=== PATIENT | male | born 1965 | race Caucasian/White ===

== ENCOUNTER 2017-08-11 21:45 | Emergency (ER) | payer SELFPAY ==
[2017-08-11 22:37] LABS: Urine Bacteria Absent (Absent); Urine Bilirubin Negative (Negative); Urine Glucose Negative (Negative); Urine Nitrite Positive (Negative)
[2017-08-11] MEDS ORDERED: NS 0.9% 1000 ML* 1,000 ML IV ONE (23:00)
[2017-08-11] MEDS ORDERED: Ketorolac INJ* 30 MG/ML 1 ML VIAL IV ONE (23:00)
[2017-08-11] MEDS ORDERED: Metoclopramide IV* 5 MG/ML 2 ML VIAL IV ONE (23:00)
[2017-08-11] MEDS ORDERED: Morphine INJ* 4 MG/ML 1 ML CARPUJECT IV PRN (23:00)
[2017-08-12] MEDS ORDERED: Tamsulosin CAP* 0.4 MG PO ONE (00:51)
[2017-08-12] MEDS ORDERED: oxyCODONE/Acetamin 5/325 MG* TAB PO ONE (00:52)
[2017-08-12 01:04] VITALS: BP 117/68
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
--- NOTE | 2017-08-12 07:34 | RAD ---
INDICATION: Right flank abdominal pain. COMPARISON: Comparison is made with prior CT of the abdomen and pelvis from June 14, 2007. TECHNIQUE: A CT scan of the abdomen and pelvis was performed without intravenous or oral contrast. Contiguous axial sections were obtained from the lung bases through the symphysis pubis. Images were reconstructed in the coronal and sagittal planes. FINDINGS: The lung bases are clear. No pleural effusion is present. The liver is normal in size and decreased in attenuation consistent with fatty liver. No significant focal hepatic abnormality is seen. There is an absent spleen. No calcific gallstones are noted. The pancreas appears to be within normal limits. The adrenal glands appear within normal limits. There are multiple bilateral renal calculi. These measure up to 0.9 cm in size. In addition there is a large calculus at the right ureteropelvic junction measuring 1.6 x 0.9 cm in size which is causing severe hydronephrosis. There was a similar calculus in the renal pelvis on the prior study. No bladder calculi are seen. The aorta is normal in caliber without significant calcific plaque. No significant enlarged retroperitoneal lymph nodes are seen. The stomach is moderately distended with food debris. The small bowel and colon appear nondistended. The appendix is within normal limits. There is moderate sigmoid diverticulosis. There is no evidence for diverticulitis or colitis. There is a small anterior abdominal wall hernia present in the upper abdomen centered just to the right of the midline containing a knuckle of small bowel which is nondistended. There are also bilateral inguinal hernias containing fat. No free intraperitoneal air or fluid is seen. No significant focal osseous abnormality is seen. IMPRESSION: 1. MULTIPLE BILATERAL RENAL CALCULI. IN ADDITION THERE IS A LARGE CALCULUS AT THE RIGHT URETEROPELVIC JUNCTION CAUSING SEVERE HYDRONEPHROSIS. 2. HEPATIC STEATOSIS. 3. STATUS POST SPLENECTOMY. 4. ANTERIOR ABDOMINAL WALL HERNIA CONTAINING A KNUCKLE OF NONDISTENDED SMALL BOWEL.
== END 2017-08-12 01:24 | disposition home or self-care (01) ==
LOC: ED 21:45
DX: N20.1 Calculus of ureter (principal); R10.84 Generalized abdominal pain
CPT/HCPCS: 74176; 81003; 81015; 87077; 87086; 87186; 96374; 96375; 99283; A9270-GY

== ENCOUNTER 2018-12-04 00:37 | Emergency (ER) | payer OTHER ==
--- NOTE | 2018-12-04 01:04 | ED ---
Upper Extremity Pain - HPI Summary HPI Summary: A 53 y/o male presents to [facility] with a chief complaint of right shoulder pain since last night. The patient reports that he had this pain after bowling. He bowls right handed and claims that he bowls often. The patient rates his pain as an 8/10 in severity. He also reports some pain in his neck and claims that his right arm is going numb. He took ibuprofen [employer] but it did not alleviate his symptoms. He claims that he had similar symptoms before and was told that it was due to arthritis. - History of Current Complaint Chief Complaint: EDExtremityUpper Stated Complaint: RT SHOULDER PAIN, ARM NUMBNESS PER PT Time Seen by Provider: 12/04/18 00:56 Hx Obtained From: Patient Mechanism Of Injury: Other - after bowling Onset/Duration: Started Hours Ago, Still Present Timing: Constant, Lasting Hours Severity Initially: Severe Severity Currently: Severe Pain Location: Shoulder Character: Unable to Describe Aggravating Factor(s): Nothing Alleviating Factor(s): Nothing Associated Signs & Symptoms: Positive: Numbness/Tingling, Neck Pain. 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, s/p 4 gastelum accident Infectious Disease History: No Infectious Disease History: Denies: Hx Hepatitis, Hx Human Immunodeficiency Virus (HIV), Traveled Outside the [place] in Last 30 Days - Family History Known Family History: Negative: Cardiac Disease - Social History Alcohol Use: None Alcohol Amount: no etoh for past year and a half Substance Use Type: Reports: None Smoking Status (MU): Never Smoked Tobacco Review of Systems Negative: Fever Positive: Arthralgia - right shoulder pain, Other - positive: neck pain Positive: Numbness - right arm All Other Systems Reviewed And Are Negative: Yes Physical Exam - Summary Physical Exam Summary: Appearance: Well-appearing, Well-nourished, lying in bed comfortable Skin: Warm, dry, no obvious rash Eyes: sclera anicteric, no conjunctival pallor ENT: mucous membranes moist Neck: deferred Respiratory: No signs of respiratory distress Cardiovascular: Appears well perfused, pulses are nml Abdomen: deferred Musculoskeletal: Pain with ROM of right shoulder which limits his mobility, tenderness over anterior shoulder and bicep tendon. Neurological: Awake and alert, mentation is normal, speech is fluent and appropriate Psychiatric: affect is normal, does not appear anxious or depressed Triage Information Reviewed: Yes Vital Signs On Initial Exam: Initial Vitals Temp Pulse Resp BP Pulse Ox 97.7 F 69 18 126/90 96 12/04/18 00:39 12/04/18 00:39 12/04/18 00:39 12/04/18 00:39 12/04/18 00:39 Vital Signs Reviewed: Yes Diagnostics - Vital Signs Vital Signs Temp Pulse Resp BP Pulse Ox 12/04/18 00:39 97.7 F 69 18 126/90 96 - Laboratory Lab Statement: Any lab studies that have been ordered have been reviewed, and results considered in the medical decision making process. - Radiology shoulder x-ray Radiology Interpretation Completed By: ED Physician Summary of Radiographic Findings: no fracture. pending official imaging report. Course/Dx - Course Course Of Treatment: A 53 y/o male presents to [facility] with a chief complaint of right shoulder pain since last night. The patient reports that he had this pain after bowling. The physical exam revealed pain with ROM of right shoulder which limits his mobility, tenderness over anterior shoulder and bicep tendon. The shoulder x-ray was negative for fracture. The patient will be discharged with a prescription for Lodine. The patient is agreeable with this plan. - Diagnoses Provider Diagnoses: Right shoulder strain Discharge - Sign-Out/Discharge Documenting (check all that apply): Patient Departure - DC Patient Received Moderate/Deep Sedation with Procedure: No - Discharge Plan Condition: Good Disposition: HOME Prescriptions: Etodolac [Lodine] 400 mg PO TID PRN #20 tablet PRN Reason: Pain Patient Education Materials: Rotator Cuff Injury (ED) Referrals: Adalberto Pearson MD [Medical Doctor] - Additional Instructions: Use the lodine instead of motrin or naproxen (don't take them together). Ice can also be helpful for pain, as can over the counter lidocaine patches or cream. If it doesn't improve over the next week or so with the above and some rest (no bowling), make an appt with the orthopedic surgeon. - Billing Disposition and Condition Condition: GOOD Disposition: Home - Attestation Statements Document Initiated by Gill: Yes Documenting Scribe: Oswaldo Lizarraga Provider For Whom Gill is Documenting (Include Credential): Jules Jorgensen MD Scribe Attestation: I, Oswaldo Lizarraga, scribed for Jules Jorgensen MD on 12/06/18 at 1252. Scribe Documentation Reviewed: Yes Provider Attestation: The documentation as recorded by the Oswaldo marroquin accurately reflects the service I personally performed and the decisions made by me, Jules Jorgensen MD Status of Scribe Document: Viewed
[2018-12-04 03:01] VITALS: BP 142/59
== END 2018-12-04 02:00 | disposition home or self-care (01) ==
LOC: ED 00:37
DX: S43.401A Unspecified sprain of right shoulder joint, initial encounter (principal); X58.XXXA Exposure to other specified factors, initial encounter; Y93.54 Activity, bowling; Y92.9 Unspecified place or not applicable
CPT/HCPCS: 99282

== ENCOUNTER 2019-06-02 17:04 | Emergency (ER) | payer OTHER ==
--- OUTSIDE RECORDS SUMMARY | 2019-06-02 17:10 | XMS REPORT | Continuity of Care Document ---
:1965 External Reference #:[id number] Author Name Adalberto Pearson MD (transmitted by agent of provider Latia Boyce) Address [address] [place] [id number] Care Team Providers Name Role Phone Patient's Choice Care Team Information Rehanger Unavailable Problems Description No Information Available Social History Type Date Description Comments Sex Unknown ETOH Use Rarely consumes alcohol Tobacco Use Start: Unknown Patient has never smoked Smoking Status Reviewed: 05/11/19 Patient has never smoked Exercise Type/Frequency Exercises regularly Allergies, Adverse Reactions, Alerts Description No Known Drug Allergies Medications Active Medications SIG Qnty Indications Ordering Provider Date Ibuprofen one tablet by Unknown 600mg Tablets mouth q6 as needed pain Immunizations Description No Information Available Vital Signs Date Vital Result Comment 05/11/2019 2:39pm Height 66 inches 5'6" Weight 215.00 lb Heart Rate 88 /min BP Systolic 110 mmHg BP Diastolic 78 mmHg Respiratory Rate 18 /min Body Temperature 98.0 F Pain Level 8 BMI (Body Mass Index) 34.7 kg/m2 Results Description No Information Available Procedures Description No Information Available Medical Devices Description No Information Available Encounters Description No Information Available Assessments Date Code Description Provider 05/11/2019 M25.562 Pain in left knee Adalberto Pearson MD Plan of Treatment 05/11/2019 - Adalberto Pearson MDM25.562 Pain in left kneeNew Xrays:MRI Knee Left W/O, Ordered: 05/11/19Follow up:Follow up: after MRI Functional Status Description No Information Available Mental Status Description No Information Available Referrals Description No Information Available
[2019-06-02 17:20] VITALS: BP 116/75
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
== END 2019-06-02 19:15 | disposition home or self-care (01) ==
LOC: UCEAST 17:04
DX: S83.512D Sprain of anterior cruciate ligament of left knee, subsequent encounter (principal); E66.9 Obesity, unspecified; Z85.038 Personal history of other malignant neoplasm of large intestine; Y04.0XXD Assault by unarmed brawl or fight, subsequent encounter
CPT/HCPCS: 99211; G0463

== ENCOUNTER 2021-10-29 17:22 | Inpatient (IN) ==
[2021-10-29] MEDS ORDERED: Ondansetron 4 mg VIAL 2 MG/ML 2 ml VIAL IV ONE (18:26)
[2021-10-29] MEDS ORDERED: Morphine 4 MG/ML VIAL (1 ml) IV ONE (18:26)
[2021-10-29] MEDS ORDERED: Lidocaine 2% JELLY 10 ML JELLY TOPICAL ONE (20:40)
[2021-10-29] MEDS ORDERED: Heparin DRIP 25,000 UNITS BAG 25,000 UNITS/500 ML BAG IV SCH (21:00)
[2021-10-29] MEDS ORDERED: Lidocaine 2% JELLY 5 ML TUBE LIDO2GEL7 TOPICAL ONE (21:00)
[2021-10-29] MEDS: Heparin 5000 UNITS/ML 1 mL VIAL IV SCH (22:48)
[2021-10-29 22:49] LABS: Activated Partial Thrombo Time 26.6 seconds (26.0-38.0); INR 1.38 (0.86-1.15)
[2021-10-29 23:08] LABS: Albumin 4.3 g/dL (3.2-5.2); Albumin/Globulin Ratio 1.1 (1-3); C Reactive Protein 140.32 mg/L (<8.01); Calcium 9.7 mg/dL (8.6-10.3); Globulin 3.9 g/dL (2-4); Total Bilirubin 1.5 mg/dL (0.2-1.0); Total Protein 8.2 g/dL (6.4-8.9); eGFR CKD-EPI 75.6 (>60)
[2021-10-29 23:11] LABS: ABS Basophils 0.1 10^3/ul (0-0.2); ABS Lymphocytes 1.4 10^3/ul (1.0-4.8); ABS Monocytes 1.3 10^3/ul (0-0.8); ABS Neutrophils 12.1 10^3/ul (1.5-7.7); ABS Nucleated RBC 0.1 10^3/ul; Hematocrit 52 % (42-52); Hemoglobin 17.6 g/dL (14.0-18.0); Lymphocyte % 9.5 %; Mean Corpuscular HGB Conc 34 g/dL (31-36); Mean Corpuscular Hemoglobin 31 pg (27-31); Mean Corpuscular Volume 90 fL (80-94); Mean Platelet Volume 8.7 fL (7.4-10.4); Platelet Count 219 10^3/uL (150-450); Red Blood Count 5.79 10^6 /uL (4.18-5.48); Red Cell Distribution Width 14 % (10-15)
[2021-10-29] MEDS ORDERED: Iohexol 350 (CONTRAST) 500 ML MDV IV ONE (23:25)
[2021-10-30 00:57] LABS: Urine Appearance Cloudy; Urine Bilirubin Negative (Negative); Urine Blood 3+ (Negative); Urine Color Amber; Urine Glucose Negative (Negative); Urine Ketones Trace (Negative); Urine Nitrite Positive (Negative); Urine Protein 1+(30 mg/dL) (Negative); Urine Specific Gravity 1.031 (1.002-1.030); Urine Urobilinogen Negative (Negative)
[2021-10-30 01:03] LABS: Urine Bacteria 1+ (Absent); Urine Granular Casts Present (Absent); Urine Red Blood Cell 3+(>10/hpf) (Absent); Urine White Blood Cell 3+(>20/hpf) (Absent)
[2021-10-30 02:02] LABS: Potassium 4.6 mmol/L (3.5-5.0)
[2021-10-30] MEDS ORDERED: Sulfamethox/Trimethoprim DS TAB 800/160 mg PO ONE (02:06)
[2021-10-30 05:33] LABS: Hematocrit 50 % (42-52); Hemoglobin 17.2 g/dL (14.0-18.0); Mean Corpuscular HGB Conc 34 g/dL (31-36); Mean Corpuscular Hemoglobin 31 pg (27-31); Mean Corpuscular Volume 90 fL (80-94); Mean Platelet Volume 8.9 fL (7.4-10.4); Platelet Count 228 10^3/uL (150-450); Red Blood Count 5.59 10^6 /uL (4.18-5.48); Red Cell Distribution Width 15 % (10-15)
[2021-10-30 06:22] LABS: Anion Gap 12 mmol/L (2-11); CO2 Carbon Dioxide 22 mmol/L (22-32); Calcium 9.3 mg/dL (8.6-10.3); Chloride 100 mmol/L (101-111); Potassium 4.3 mmol/L (3.5-5.0); Sodium 134 mmol/L (135-145)
[2021-10-30 06:28] LABS: Blood Urea Nitrogen 22 mg/dL (6-24); Glucose 130 mg/dL (70-100); eGFR CKD-EPI 84.4 (>60)
[2021-10-30] MEDS: Heparin 5000 UNITS/ML 1 mL VIAL IV SCH (06:29)
[2021-10-30 07:27] LABS: Troponin I 0.03 ng/mL (<0.03)
[2021-10-30 07:41] LABS: ABS Basophils 0.1 10^3/ul (0-0.2); ABS Monocytes 1.9 10^3/ul (0-0.8); Eosinophil % 0.1 %; Lymphocyte % 15.2 %
[2021-10-30] MEDS ORDERED: Perflutren Lipid Microsphere 3 ML VIAL ONE (10:44)
[2021-10-30] MEDS ORDERED: Heparin 2 UNITS/ML IVPREMIX 1,000 UNIT/500 ML BAG IV ONE ×5 (13:17→17:54)
[2021-10-30] MEDS ORDERED: Lidocaine 1% VIAL 10 MG/ML VIAL ONE (13:17)
[2021-10-30] MEDS ORDERED: Iohexol 350 (CONTRAST) 200 ML MDV IV ONE (13:17)
[2021-10-30] MEDS ORDERED: fentaNYL 100 mcg/2 ml 50 MCG/ML VIAL ONE ×3 (13:34→18:03)
[2021-10-30] MEDS ORDERED: Midazolam 5 mg/5 ml VIAL 1 mg/ml 5 ml VIAL (5 mg) ONE ×2 (13:34→15:59)
[2021-10-30] MEDS ORDERED: Heparin 1,000 UNIT/ML 10 ml (10,000 UNITS) CATHLAB/DIALYSIS ONE ×2 (13:38→15:13)
[2021-10-30] MEDS ORDERED: Heparin DRIP 25,000 UNITS BAG 25,000 UNITS/500 ML BAG ONE (15:02)
[2021-10-30] MEDS: Sulfamethox/Trimethoprim DS TAB 800/160 mg PO SCH (18:13)
[2021-10-31 03:19] LABS: Hematocrit 45 % (42-52); Mean Corpuscular HGB Conc 33 g/dL (31-36); Mean Corpuscular Hemoglobin 30 pg (27-31); Mean Corpuscular Volume 91 fL (80-94); Mean Platelet Volume 9.7 fL (7.4-10.4); Platelet Count 201 10^3/uL (150-450); Red Blood Count 4.95 10^6 /uL (4.18-5.48); Red Cell Distribution Width 15 % (10-15); White Blood Count 18.9 10^3/uL (3.5-10.8)
[2021-10-31 03:20] LABS: ABS Lymphocytes 1.2 10^3/ul (1.0-4.8); ABS Monocytes 1.9 10^3/ul (0-0.8); ABS Neutrophils 15.8 10^3/ul (1.5-7.7); Eosinophil % 0.1 %; Lymphocyte % 6.2 %
[2021-10-31 03:42] LABS: Blood Urea Nitrogen 24 mg/dL (6-24); CO2 Carbon Dioxide 27 mmol/L (22-32); Calcium 8.6 mg/dL (8.6-10.3); Chloride 98 mmol/L (101-111); Glucose 136 mg/dL (70-100); Sodium 132 mmol/L (135-145); eGFR CKD-EPI 71.9 (>60)
[2021-10-31] MEDS: Heparin 5000 UNITS/ML 1 mL VIAL IV SCH ×2 (03:53→10:46)
[2021-10-31 03:56] LABS: Anion Gap 7 mmol/L (2-11)
[2021-10-31 08:23] LABS: Potassium, Whole Blood 4.1 mmol/L (3.4-4.5)
[2021-10-31] MEDS: Sulfamethox/Trimethoprim DS TAB 800/160 mg PO SCH ×2 (08:26→19:46)
[2021-10-31] MEDS: Heparin DRIP 25,000 UNITS BAG 25,000 UNITS/500 ML BAG IV SCH ×2 (10:04→23:41)
[2021-11-01 05:12] LABS: ABS Basophils 0.1 10^3/ul (0-0.2); ABS Eosinophils 0.1 10^3/ul (0-0.6); ABS Lymphocytes 1.7 10^3/ul (1.0-4.8); ABS Monocytes 1.5 10^3/ul (0-0.8); ABS Neutrophils 7.9 10^3/ul (1.5-7.7); Eosinophil % 1.1 %; Hematocrit 42 % (42-52); Hemoglobin 13.7 g/dL (14.0-18.0); Lymphocyte % 15.3 %; Mean Corpuscular HGB Conc 33 g/dL (31-36); Mean Corpuscular Hemoglobin 30 pg (27-31); Mean Corpuscular Volume 92 fL (80-94); Mean Platelet Volume 9.5 fL (7.4-10.4); Nucleated Red Blood Cells % 0.2; Platelet Count 208 10^3/uL (150-450); Red Blood Count 4.53 10^6 /uL (4.18-5.48); Red Cell Distribution Width 14 % (10-15); White Blood Count 11.4 10^3/uL (3.5-10.8)
[2021-11-01 05:52] LABS: Calcium 8.5 mg/dL (8.6-10.3); Potassium 3.9 mmol/L (3.5-5.0); eGFR CKD-EPI 90.5 (>60)
[2021-11-01] MEDS: Sulfamethox/Trimethoprim DS TAB 800/160 mg PO SCH ×2 (08:41→20:26)
[2021-11-01] MEDS ORDERED: Iohexol 350 (CONTRAST) 200 ML MDV IV ONE (11:30)
[2021-11-01] MEDS ORDERED: Heparin 2 UNITS/ML IVPREMIX 3,000 UNIT/1,500 ML BAG IV ONE (11:30)
[2021-11-01] MEDS ORDERED: Lidocaine 1% VIAL 10 MG/ML VIAL ONE (11:30)
[2021-11-01] MEDS ORDERED: Midazolam 5 mg/5 ml VIAL 1 mg/ml 5 ml VIAL (5 mg) ONE ×2 (11:34→13:39)
[2021-11-01] MEDS ORDERED: fentaNYL 100 mcg/2 ml 50 MCG/ML VIAL ONE ×3 (11:34→12:48)
[2021-11-01] MEDS ORDERED: Heparin 1,000 UNIT/ML 10 ml (10,000 UNITS) CATHLAB/DIALYSIS ONE ×2 (12:27→13:25)
[2021-11-02 05:26] LABS: ABS Basophils 0.1 10^3/ul (0-0.2); ABS Eosinophils 0.3 10^3/ul (0-0.6); ABS Lymphocytes 1.7 10^3/ul (1.0-4.8); ABS Monocytes 1.2 10^3/ul (0-0.8); Eosinophil % 2.8 %; Hematocrit 40 % (42-52); Hemoglobin 13.4 g/dL (14.0-18.0); Lymphocyte % 18.1 %; Mean Corpuscular HGB Conc 34 g/dL (31-36); Mean Corpuscular Hemoglobin 30 pg (27-31); Mean Corpuscular Volume 90 fL (80-94); Mean Platelet Volume 9.3 fL (7.4-10.4); Nucleated Red Blood Cells % 0.1; Platelet Count 217 10^3/uL (150-450); Red Blood Count 4.41 10^6 /uL (4.18-5.48); Red Cell Distribution Width 14 % (10-15); White Blood Count 9.2 10^3/uL (3.5-10.8)
[2021-11-02] MEDS: Heparin 5000 UNITS/ML 1 mL VIAL IV SCH (05:55)
[2021-11-02] MEDS: Heparin DRIP 25,000 UNITS BAG 25,000 UNITS/500 ML BAG IV SCH (07:35)
[2021-11-02] MEDS: Sulfamethox/Trimethoprim DS TAB 800/160 mg PO SCH ×2 (12:23→20:00)
[2021-11-02] MEDS ORDERED: Magnesium Hydroxide LIQ 30 ML UDC PO PRN (15:08)
[2021-11-02] MEDS ORDERED: Senna TAB 8.6 mg TAB PO PRN (15:08)
[2021-11-02] MEDS ORDERED: Iohexol 300 (CONTRAST) 10 ML SDV IV ONE (22:01)
[2021-11-03 02:23] LABS: Urine Appearance Cloudy; Urine Bilirubin Negative (Negative); Urine Blood 3+ (Negative); Urine Color Yellow; Urine Glucose Negative (Negative); Urine Ketones Negative (Negative); Urine Nitrite Negative (Negative); Urine Protein Negative (Negative); Urine Urobilinogen Positive (Negative)
[2021-11-03 02:26] LABS: Urine Bacteria Absent (Absent); Urine Red Blood Cell 3+(>10/hpf) (Absent); Urine White Blood Cell 3+(>20/hpf) (Absent)
[2021-11-03 02:30] LABS: Urine Specific Gravity > 1.060 (1.002-1.030)
[2021-11-03 03:28] LABS: Calcium 8.9 mg/dL (8.6-10.3); Potassium 4.8 mmol/L (3.5-5.0)
[2021-11-03] MEDS: Sulfamethox/Trimethoprim DS TAB 800/160 mg PO SCH ×2 (08:56→20:15)
[2021-11-03] MEDS: Nystatin TOP POWDER 15 GM BTL TOPICAL SCH ×2 (16:00→20:16)
[2021-11-03 16:20] LABS: Hematocrit 42 % (42-52); Hemoglobin 14.2 g/dL (14.0-18.0); Mean Corpuscular HGB Conc 34 g/dL (31-36); Mean Corpuscular Hemoglobin 31 pg (27-31); Mean Corpuscular Volume 91 fL (80-94); Platelet Count 315 10^3/uL (150-450); Red Blood Count 4.61 10^6 /uL (4.18-5.48); Red Cell Distribution Width 14 % (10-15); White Blood Count 10.3 10^3/uL (3.5-10.8)
[2021-11-03 16:54] LABS: RBC Morphology Normal (Normal)
[2021-11-03 16:55] LABS: ABS Basophils 0.1 10^3/ul (0-0.2); ABS Eosinophils 0.6 10^3/ul (0-0.6); ABS Lymphocytes 1.5 10^3/ul (1.0-4.8); ABS Neutrophils 7.1 10^3/ul (1.5-7.7); Eosinophil % 5.9 %; Lymphocyte % 14.2 %; Nucleated Red Blood Cells % 0.1
[2021-11-04 05:22] LABS: ABS Basophils 0.1 10^3/ul (0-0.2); ABS Eosinophils 0.7 10^3/ul (0-0.6); ABS Lymphocytes 1.7 10^3/ul (1.0-4.8); ABS Monocytes 1.3 10^3/ul (0-0.8); ABS Neutrophils 6.4 10^3/ul (1.5-7.7); Eosinophil % 7.3 %; Hematocrit 39 % (42-52); Hemoglobin 13.3 g/dL (14.0-18.0); Lymphocyte % 16.3 %; Mean Corpuscular HGB Conc 34 g/dL (31-36); Mean Corpuscular Hemoglobin 31 pg (27-31); Mean Corpuscular Volume 91 fL (80-94); Mean Platelet Volume 8.8 fL (7.4-10.4); Nucleated Red Blood Cells % 0.1; Platelet Count 366 10^3/uL (150-450); Red Blood Count 4.32 10^6 /uL (4.18-5.48); Red Cell Distribution Width 14 % (10-15); White Blood Count 10.2 10^3/uL (3.5-10.8)
[2021-11-04 06:01] LABS: Blood Urea Nitrogen 15 mg/dL (6-24); CO2 Carbon Dioxide 25 mmol/L (22-32); Calcium 8.9 mg/dL (8.6-10.3); Chloride 101 mmol/L (101-111); Glucose 115 mg/dL (70-100); Sodium 134 mmol/L (135-145); eGFR CKD-EPI 103.6 (>60)
[2021-11-04 06:23] LABS: Anion Gap 8 mmol/L (2-11)
[2021-11-04] MEDS: Nystatin TOP POWDER 15 GM BTL TOPICAL SCH ×2 (10:03→23:07)
[2021-11-04] MEDS: Sulfamethox/Trimethoprim DS TAB 800/160 mg PO SCH ×2 (10:03→20:09)
[2021-11-04] MEDS ORDERED: Heparin 5000 UNITS/ML 1 mL VIAL IV SCH (16:00)
[2021-11-04] MEDS ORDERED: Heparin DRIP 25,000 UNITS BAG 25,000 UNITS/500 ML BAG IV SCH (21:00)
[2021-11-04] MEDS ORDERED: Lidocaine 2% JELLY 6 ML TOPICAL ONE (21:40)
[2021-11-05 07:17] LABS: Blood Urea Nitrogen 15 mg/dL (6-24); CO2 Carbon Dioxide 21 mmol/L (22-32); Calcium 8.7 mg/dL (8.6-10.3); Chloride 103 mmol/L (101-111); Glucose 125 mg/dL (70-100); Magnesium 2.1 mg/dL (1.9-2.7); Sodium 133 mmol/L (135-145); eGFR CKD-EPI 97.6 (>60)
[2021-11-05 07:57] LABS: Anion Gap 9 mmol/L (2-11)
[2021-11-05] MEDS: Nystatin TOP POWDER 15 GM BTL TOPICAL SCH ×2 (10:27→21:37)
[2021-11-05] MEDS: Sulfamethox/Trimethoprim DS TAB 800/160 mg PO SCH ×2 (10:27→21:37)
[2021-11-06] MEDS: Sulfamethox/Trimethoprim DS TAB 800/160 mg PO SCH (08:45)
[2021-11-06] MEDS: Nystatin TOP POWDER 15 GM BTL TOPICAL SCH (08:46)
[2021-11-06 14:36] VITALS: BP 103/72
== END 2021-11-06 14:15 | disposition home or self-care (01) | DRG 950 ==
LOC: ED 17:22 → EDHOLD 17:22 → SUATTDRO 21:31 → ICU 10-30 12:32 → SUATTDRO 10-30 20:04 → MEDTELE 11-01 22:23
PROVIDERS: ADMIT Internal Medicine; ATTEND Internal Medicine